=== PATIENT | female | born 1980 | race Caucasian/White ===

== ENCOUNTER 2021-06-08 23:52 | Emergency (ER) | payer SELFPAY ==
[2021-06-08 23:57] VITALS: BP 141/87; PULSE 95; RESP 18; TEMP 36.8; O2SAT 95; BMI 32.5
[2021-06-09 00:43] LABS: COVID-19 Test Positive (Negative)
--- NOTE | 2021-06-09 00:45 | ED_ITS ---
HPI - General Adult General Chief complaint: Nausea/Vomiting/Diarrhea Stated complaint: flu like symptoms Time Seen by Provider: 06/09/21 00:25 Source: patient Mode of arrival: ambulatory Limitations: no limitations History of Present Illness HPI narrative: Patient advised against COVID been to [facility] on Thanksgiving time since she came back from their been nauseated and vomiting multiple times with diarrhea now has cough body aches tiredness chills flu-like symptoms. Patient does have a diarrhea with lot of mucus Related Data Previous Rx's Medication Instructions Recorded metronidazole 500 mg tablet 250 mg PO BID 10 Days #10 tab 06/09/21 ondansetron 4 mg disintegrating 4 mg PO Q6-8H PRN #7 tab 06/09/21 tablet Allergies Allergy/AdvReac Type Severity Reaction Status Date / Time azithromycin Allergy Rash Verified 06/08/21 23:56 gabapentin AdvReac Anxiety Verified 06/08/21 23:56 Review of Systems Review of Systems: Yes all other systems are reviewed and are negative PMFSH Social History Social History Advance Directives: No Advance Directives Information Provided: No Patient : No Physical Exam Vital Signs: Vital Signs: Last Vital Signs Temp 98.3 F 06/08/21 23:57 Pulse 95 06/08/21 23:57 Resp 18 06/08/21 23:57 BP 141/87 H 06/08/21 23:57 Pulse Ox 95 06/08/21 23:57 BMI result Body Mass Index 32.5 Appearance: Alert. Oriented X3. No acute distress. ENT: Pharynx normal. Oral Mucosa moist Neck: Normal inspection. Neck supple. CVS: Normal heart rate and rhythm. Pulses normal. Respiratory: No respiratory distress. Equal air entry bilateral, Abdomen: Soft and nontender. Bowel sounds are present, Skin: Skin warm and dry. Normal skin color. Normal skin turgor. Extremities: No lower extremity edema. No calf tenderness Neuro: Oriented X 3. Medical Decision Making MDM Narrative Medical decision making narrative: Patient with COVID-19 symptoms test came positive also she has diarrhea likely from COVID may be possible levels diarrhea will give her Flagyl advised her to drink plenty of fluids patient is saturating 95% at room air Lab Data Lab results reviewed: Yes I reviewed the patient's lab results. Labs: Lab Results 06/09/21 Range/Units 00:06 COVID-19 (CHRISTA) Positive A (Negative) COVID-19 Clin Com See Note Discharge Plan Discharge Clinical Impression: COVID-19, Traveler's diarrhea Patient Disposition: Home, Self-Care Instructions: Traveler's Diarrhea (ED), COVID-19 (Coronavirus Disease 2019) (ED) Additional Instructions: Drink plenty of fluids Nausea medication advised Social distancing advised Flagyl as advised for traveler's diarrhea Report to the ER if increased shortness of breath Prescriptions: New ondansetron 4 mg tablet,disintegrating 4 mg PO Q6-8H PRN (Reason: nausea and vomiting) Qty: 7 RF: 0 metronidazole 500 mg tablet 250 mg PO BID 10 Days Qty: 10 RF: 0 Interventions: ED Discharge Assessment Last Done: 06/09/21 01:44 Discharge Date/Time: 06/09/21 01:45
[2021-06-09] MEDS: Ondansetron ODT 4 MG TAB.RAPDIS TRANSLINGU (01:23)
[2021-06-09] MEDS: metroNIDAZOLE 500 MG TABLET PO (01:23)
== END 2021-06-09 01:45 | disposition home or self-care (01) ==
PROVIDERS: Emergency Provider Internal Medicine
DX: U07.1 COVID-19 (principal); A08.8 Other specified intestinal infections
CPT/HCPCS: 36415; 87635; 96374; 99283; 99284